=== PATIENT | male | born 1975 | race Caucasian/White ===

== ENCOUNTER 2019-07-21 11:17 | Emergency (ER) | payer BC, SELFPAY ==
--- NOTE | ~2019-07-21 | XR_ITS ---
EXAMINATION: XR shoulder RT min 2V DATE: 07/21/2019 13:31 INDICATION: Biceps tendon trauma. TECHNIQUE: 4 views of right shoulder were obtained. COMPARISON: None. FINDINGS: Bone alignment is normal. No fracture. There is mild osteoarthritis of glenohumeral joint a nd moderate osteoarthritis of acromioclavicular joint. IMPRESSION: 1. Polyarticular osteoarthritis. Reviewed, dictated and finalized at location A. CAL SCHEDULER
--- NOTE | ~2019-07-21 | XR_ITS ---
EXAMINATION: XR elbow RT 2V DATE: 07/21/2019 13:30 INDICATION: Biceps tendon pain. TECHNIQUE: 2 views of right elbow were obtained. COMPARISON: None. FINDINGS: Bone alignment is normal. No fracture. Joint spaces are well maintained. There are enthesop hytes at the medial humeral epicondyle and olecranon. There is no elbow joint effusion. IMPRESSION: 1. No fracture. Reviewed, dictated and finalized at location A. SFORMER REPAIRER IMPRESSION: 1. No fracture.
[2019-07-21 11:35] VITALS: BP 145/89; PULSE 109; RESP 18; TEMP 36.9; O2SAT 100
--- NOTE | 2019-07-21 12:48 | ED.GENADULT ---
HPI - General Adult General Chief complaint: Extremity Injury, Upper <SUAD Tamayo Last Filed: 07/21/19 14:37> Stated complaint: I think I tore my Bicep <SUAD Tamayo Last Filed: 07/21/19 14:37> Time Seen by Provider: 07/21/19 12:48 <SUAD Tamayo Last Filed: 07/21/19 14:37> Source: patient <SUAD Tamayo Last Filed: 07/21/19 14:37> Mode of arrival: ambulatory <SUAD Tamayo Last Filed: 07/21/19 14:37> Limitations: no limitations <SUAD Tamayo Last Filed: 07/21/19 14:37> History of Present Illness HPI narrative: Patient was lifting a stove this morning while doing some remodeling and felt a pop in his right bicep. There is a slight gap, no hematoma. He is unable to fully rotate at the elbow due to pain. <Daphne Cotas PA-C - Last Filed: 07/21/19 14:37> Onset (ago): hour(s) <SUAD Tamayo Last Filed: 07/21/19 14:37> Location: right and upper extremity <Daphne Coats PA-C - Last Filed: 07/21/19 14:37> Radiation: non-radiation <SUAD Tamayo Last Filed: 07/21/19 14:37> Severity: moderate <SUAD Tamayo Last Filed: 07/21/19 14:37> Quality: aching <SUAD Tamayo Last Filed: 07/21/19 14:37> Pain Consistency: constant <SUAD Tamayo Last Filed: 07/21/19 14:37> Relieving factors: none <SUAD Tamayo Last Filed: 07/21/19 14:37> Exacerbating factors: movement <Daphne Coats PA-C - Last Filed: 07/21/19 14:37> Treatments prior to arrival: none <Daphne Coats PA-C - Last Filed: 07/21/19 14:37> Related Data Home medications: Home Medications Medication Instructions Recorded Confirmed diclofenac sodium PO 07/21/19 <Daphne Coats PA-C - Last Filed: 07/21/19 14:37> Allergies/adverse reactions: Allergies Allergy/AdvReac Type Severity Reaction Status Date / Time No Known Drug Allergies Allergy Verified 07/21/19 13:20 <Daphne Coats PA-C - Last Filed: 07/21/19 14:37> Review of Systems Review of Systems: All systems reviewed & are unremarkable except as noted in HPI and below <Daphne Coats PA-C - Last Filed: 07/21/19 14:37> [facility] Family History Family History: Family History Mother Family history of heart disease in male family member before age 55 Other Diabetes mellitus Family history of lymphoma <Daphne Coats PA-C - Last Filed: 07/21/19 14:37> Social History Social History: Social History (Updated 07/21/19 @ 13:21 by Daphne Coats PA-C) Smoking status: Current every day smoker Alcohol intake: current Substance use: never Living arrangements: with family Occupation/Education: occupation Gender identity (if verbalized by the patient): Male <Daphne Coats PA-C - Last Filed: 07/21/19 14:37> Exam Const: General: no acute distress <Daphne Coats PA-C - Last Filed: 07/21/19 14:37> HENMT: Head: normal to inspection <Daphne Coats PA-C - Last Filed: 07/21/19 14:37> Eyes: Pupils: Equal, round and reactive pupils present <Daphne Coats PA-C - Last Filed: 07/21/19 14:37> Resp: Effort & Inspection: normal respiratory effort <Daphne Coats PA-C - Last Filed: 07/21/19 14:37> Cardio: Rate: regular rate <Daphne Coats PA-C - Last Filed: 07/21/19 14:37> Rhythm: regular rhythm <Daphne Coats PA-C - Last Filed: 07/21/19 14:37> Peripheral pulses: radial pulses present <Daphne Coats PA-C - Last Filed: 07/21/19 14:37> Skin: General skin exam: normal color <SUAD Tamayo Last Filed: 07/21/19 14:37> Extrem: Right upper extremity: normal to inspection, normal capillary refill, no joint enlargement and shoulder/upper arm (no significant swelling of bicep. ) tenderness over the biceps tendon (distally) and normal ROM (pain with rotation
[2019-07-21] MEDS: IBUPROFEN 400 MG TABLET 800 MG PO (13:51)
[2019-07-21 14:50] VITALS: PULSE 80; RESP 16; O2SAT 98
== END 2019-07-21 14:55 | disposition home or self-care (01) ==
PROVIDERS: Emergency Provider Emergency Medicine
DX: S46.211A Strain of muscle, fascia and tendon of other parts of biceps, right arm, initial encounter (principal); F17.200 Nicotine dependence, unspecified, uncomplicated; X50.0XXA Overexertion from strenuous movement or load, initial encounter
CPT/HCPCS: 73030; 73070; 99284; A4565; A9270

== ENCOUNTER 2020-03-12 03:15 | Inpatient (IN) | payer BC, SELFPAY ==
[2020-03-12] VITALS (14 sets, daily range): BP systolic 124–157; BP diastolic 84–108; PULSE 69–99; RESP 14–18; TEMP 36.6; O2SAT 94–100; BMI 27.4
--- NOTE | ~2020-03-12 | XR_ITS ---
EXAMINATION: XR chest 2V DATE: 03/12/2020 03:49 INDICATION: Chest pain. TECHNIQUE: Frontal and lateral views of the chest were obtained. COMPARISON: None. FINDINGS: The chest demonstrates clear lungs without pneumonia, pleural effusion, or pneumothorax. Th e heart size is normal. IMPRESSION: 1. No acute cardiopulmonary disease. Reviewed, dictated and finalized at location A.
--- NOTE | 2020-03-12 03:23 | ECG_ITS ---
Measurements Intervals [place] Rate: 87 P: 64 DC: 146 QRS: -3 QRSD: 97 T: -7 QT: 364 QTc: 440 Interpretive Statements SINUS RHYTHM BORDERLINE T WAVE ABNORMALITY- INFERIOR LEADS BASELINE ARTIFACT- V1-V2 BORDERLINE ECG Electronically Signed On 03-12-2020 6:44:54 CDT by Ezequiel Gray D.O.
--- NOTE | 2020-03-12 03:25 | ED.CHESTPAIN ---
HPI - Chest Pain General Chief Complaint: Chest Pain Stated Complaint: chest pain Time Seen by Provider: 03/12/20 03:25 History of Present Illness HPI narrative: Pt c/o chest pain, midsternal, tightness, moderated, non radiating,started this mornng. Related Data Home Medications Medication Instructions Recorded Confirmed pravastatin 40 mg PO HS 03/12/20 03/12/20 Allergies Allergy/AdvReac Type Severity Reaction Status Date / Time No Known Drug Allergies Allergy Unknown Verified 03/12/20 04:10 Review of Systems Review of Systems: All systems reviewed & are unremarkable except as noted in HPI and below Constitutional: Constitutional: Denies body ache(s), Denies chills, Denies excessive sweating, Denies fatigue, Denies fever(s), Denies headache(s), Denies lethargy, Denies malaise, Denies weakness and Denies weight loss Eyes: Eyes: Denies blurry vision, Denies change in vision and Denies loss of vision ENT: Denies dizziness, Denies ear discharge, Denies headache(s), Denies lip swelling, Denies epistaxis, Denies nasal congestion, Denies neck pain, Denies throat swelling and Denies tongue swelling Cardiovascular: Cardiovascular: Denies diaphoresis, Denies rapid heart rate, Denies edema, Denies irregular heart rhythm, Denies lightheadedness, Denies palpitations, Denies dyspnea and Denies dyspnea on exertion Respiratory: Respiratory: Denies chest congestion, Denies cough, Denies hemoptysis, Denies dyspnea and Denies dyspnea on exertion Gastrointestinal: Gastrointestinal: Denies abdominal pain, Denies melena, Denies hematochezia, Denies diarrhea, Denies nausea, Denies vomiting and Denies hematemesis Musculoskeletal: Musculoskeletal: Denies abnormal gait, Denies deformity, Denies joint swelling, Denies limited range of motion, Denies neck pain and Denies numbness Neurologic: Denies Abnormal speech present, Denies abnormal gait, Denies confusion, Denies dizziness, Denies headache(s), Denies focal weakness, Denies loss of vision, Denies numbness, Denies Other visual disturbances, Denies Sensory deficit (Neuro) and Denies weakness Psychiatric: Psychiatric: Denies confusion, Denies depression, Denies auditory hallucinations, Denies homicidal ideation and Denies suicidal ideation Endocrine: Endocrine: Denies cold intolerance, Denies excessive sweating, Denies fatigue, Denies heat intolerance and Denies palpitations Hematologic/Lymphatic: Hematologic/Lymphatic: Denies easy bleeding and Denies easy bruising Allergic/Immunologic: Allergic/Immunologic: Denies lip swelling, Denies throat swelling and Denies tongue swelling COUNT INCLUDES THE [facility] Social History Social History (Updated 07/21/19 @ 13:21 by Daphne Coats PA-C) Smoking status: Current every day smoker Alcohol intake: current Substance use: never Gender identity (if verbalized by the patient): Male Exam Const: General: cooperative, healthy appearing, comfortable, no acute distress, well developed, alert and awake; No confusion Orientation/consciousness: oriented to person, oriented to place, oriented to time, patient oriented x3 and No confusion Limitations: no limitations HENMT: Head: normal to inspection, normocephalic and atraumatic Ears: hearing grossly normal bilaterally, TM normal on the right and TM normal on the left General nose exam: Normal external nose present, Normal nares present and No nasal discharge present Face and sinus: normal facial exam Mouth: Yes Normal oral and palatal mucosa present, Yes lip normal, Yes tongue normal and Yes oropharynx normal Throat: posterior oropharynx normal, tonsils normal and uvula midline Eyes: General: appearance normal, both eyes and all related structures Pupils: Equal, round and reactive pupils present EOM: EOMs intact bilaterally Neck: Neck: normal visual inspection, full ROM, no lymphadenopathy and no meningeal signs Chest: Chest palpation & inspection: normal inspection of the chest Resp: Effort & Inspection: normal
[2020-03-12 03:35] LABS: Basophils Absolute Auto 0.1 K/mm3 (0.0-0.1); Basophils Percent Auto 1.3 % (0.2-1.2); Eosinophils Absolute Auto 0.8 K/mm3 (0-0.3); Eosinophils Percent Auto 8.4 % (0-4.4); Hematocrit 48.8 % (42.0-52.0); Hemoglobin 16.9 g/dL (14.0-18.0); Immature Granulocyte Absolute 0.02 K/mm3 (0.00-0.031); Immature Granulocyte Percent A 0.2 % (0-0.5); Lymphocytes Absolute Auto 4.75 K/mm3 (0.9-3.2); Lymphocytes Percent Auto 48.3 % (18.3-44.2); Mean Corpuscular HGB Conc 34.6 g/dl (32-36); Mean Corpuscular Hemoglobin 30.9 pg (26-34); Mean Corpuscular Volume 89.2 fl (80-100); Mean Platelet Volume 10.2 fl (7.4-10.4); Monocytes Absolute Auto 0.9 K/mm3 (0.1-0.6); Monocytes Percent Auto 8.6 % (2.6-8.5); Neutrophils Absolute Auto 3.3 K/mm3 (1.3-6.7); Neutrophils Percent Auto 33.2 % (45.5-73.1); Platelet Count Result 319 k/mm3 (150-375); Red Blood Count 5.47 M/mm3 (4.6-6.20); Red Cell Distribution Width 12.9 % (11.5-14.5); White Blood Count 9.8 K/mm3 (4.5-10.0)
[2020-03-12] MEDS: ASPIRIN 81 MG CHEWABLE TABLET 324 MG PO (03:38)
[2020-03-12 03:55] LABS: Alanine Aminotransferase 29 U/L (4-50); Albumin Level 4.6 g/dL (3.5-5.1); Alkaline Phosphatase 107 U/L (38-126); Anion Gap 8 mmol/L (8-16); Aspartate Amino Transferase 35 U/L (17-59); Bilirubin,Total 0.6 mg/dL (0.2-1.3); Blood Urea Nitrogen 18 mg/dL (9-20); Calcium 9.5 mg/dL (8.4-10.2); Carbon Dioxide 24 mmol/L (22-30); Chloride 105 mmol/L (98-107); Estimated CRCL calculation 0 ml/min; Estimated Glomerular Filt Rate > 60; Glucose 106 mg/dL (75-110); Sodium 137 mmol/L (137-145)
[2020-03-12 04:05] LABS: Troponin I < 0.012 ng/mL (0.000-0.034)
--- NOTE | 2020-03-12 06:25 | ECG_ITS ---
Measurements Intervals [place] Rate: 73 P: 60 DC: 158 QRS: -6 QRSD: 95 T: 9 QT: 378 QTc: 417 Interpretive Statements SINUS RHYTHM INCOMPLETE RIGHT BUNDLE BRANCH BLOCK BORDERLINE ECG Electronically Signed On 03-12-2020 6:45:21 CDT by Ezequiel Gray D.O.
[2020-03-12 06:55] LABS: Cholesterol 230 mg/dL (0-200); LDL Cholesterol Direct 109 mg/dL; Triglycerides 644 mg/dL (<150)
[2020-03-12 06:56] LABS: Troponin I 0.272 ng/mL (0.000-0.034)
[2020-03-12] MEDS: ASPIRIN 81 MG CHEWABLE TABLET PO (07:07)
--- NOTE | 2020-03-12 07:08 | PC.NURSE ---
0700-positive troponin reported to MD. Orders received and carried out. Pt reports no pain at this time. Will continue to monitor.
--- NOTE | 2020-03-12 08:38 | ECHO_ITS ---
Patient Info Name: Shawn Dunne Age: 45 years : 1975 Gender: Male Ht: 67 in Wt: 175 lbs BSA: 1.95 m2 HR: 80 bpm BP: 153 / 93 mmHg Heart Rhythm: Sinus Rhythm Technical Quality: Good Exam Date: 03/12/2020 9:04 AM Exam Location: [facility] Patient Status: Inpatient Admit Date: 03/12/2020 Staff Ordering Physician: Ayah Us MD (mitchell/ekaterina) Insurance Investigator: Keith Hunt RDCS Attending Provider: Dg Wallace MD Exam Type: CA echo doppler color flow Study Info Indications R07.9 - Chest pain, unspecified Complete two-dimensional, color flow and Doppler transthoracic echocardiogram is performed. Strain analysis performed. History/Risk Factors Chest pain; NSTEMI. Summary 1. Complete two-dimensional, color flow and Doppler transthoracic echocardiogram is performed. 2. Left ventricular chamber dimension is normal. 3. Left ventricular systolic function is normal, estimated at 60-65%. 4. Left atrial chamber dimension is normal. 5. Right atrial chamber dimension is normal. 6. The aortic valve is trileaflet. 7. There is no aortic valve stenosis. 8. The mitral valve has normal leaflets. 9. There is no mitral valve regurgitation. 10. The tricuspid valve leaflets are normal. 11. There is no tricuspid valve regurgitation. 12. There is no pericardial effusion. Left Ventricle Left ventricular chamber dimension is normal. Left ventricular systolic function is normal, estimated at 60-65%. There is no increased left ventricular wall thickness. Left ventricular septal wall motion is normal. The left ventricular diastolic function is normal. Right Ventricle Right ventricular chamber dimension is normal. Right ventricular systolic function is normal. Left Atria Left atrial chamber dimension is normal. Right Atria Right atrial chamber dimension is normal. Aortic Valve The aortic valve is trileaflet. There is no aortic valve sclerosis. There is no aortic valve stenosis. There is no aortic valve regurgitation. Pulmonic Valve The pulmonic valve is normal. There is no pulmonic valve stenosis. There is no pulmonic regurgitation. Mitral Valve The mitral valve has normal leaflets. There is no mitral valve stenosis. There is no mitral valve regurgitation. Tricuspid Valve The tricuspid valve leaflets are normal. There is no tricuspid valve regurgitation. Unable to assess RVSP due to poor TR signal. . Pericardium/Pleural The pericardium appears normal. There is no pericardial effusion. Inferior Vena Cava Normal inferior vena cava with >50% collapse upon inspiration. Aorta The aortic root size at the sinus of Valsalva is normal. The prox ascending aorta size is normal. Left Ventricular Outflow Tract Name Value Normal LVOT 2D LVOT Diameter 1.9 cm LVOT Doppler LVOT Peak Gradient 5 mmHg LVOT Mean Gradient 2 mmHg LVOT VTI 21 cm LVOT VTI/AV VTI Ratio 0.7 LVOT Stroke Volume 56 ml
--- NOTE | 2020-03-12 08:39 | PM.CNCAR ---
Assessment and Plan Assessment and plan (1) NSTEMI (non-ST elevated myocardial infarction): Code(s): I21.4 - Non-ST elevation (NSTEMI) myocardial infarction Status: Acute Assessment and Plan: 45 y/o with now prior cardiac history however multiple cardiovascular risk factors including HTN, HLD, active tobacco abuse, strong family history of early onset CAD who presents with atypical chest pain and elevated troponin at 0.2 He is pain free now. EKG with ischemic changes in inferior leads. Check 2D echo Will follow 3rd troponin and if continue to rise or if echo showed regional wall motion changes will start IV heparin and make arrangements for [facility] this afternoon or sooner if he develops chest pain or has any changes Continue ASA and statin (2) HTN (hypertension): Code(s): I10 - Essential (primary) hypertension Status: Acute Assessment and Plan: Will monitor closely. May need to start antihypertensives (3) HLD (hyperlipidemia): Code(s): E78.5 - Hyperlipidemia, unspecified Status: Acute Assessment and Plan: TG elevated. Continue Pravastatin. Consider switch to high intensive statin (4) Tobacco abuse: Code(s): Z72.0 - Tobacco use Status: Acute Assessment and Plan: Smoking cessation encouraged. Also drinks alcohol on daily basis. No signs of withdrawal History of Present Illness History of Present Illness Consult date/time: 03/12/20 08:39 45 y/o with h/o tobacco abuse who presented with chest pain He has no medical follow up for years and recently decided to see new PCP who started him on statin last week. He also instructed him to monitor BP at home with possible need to start antihypertensives. He reports on and off chest discomfort for the last 6 months. This morning around 1:30 am he woke up with pain and tightness in both upper arms that radiates to the back with some chest discomfort. He waited for sometime but pain did not resolved. He checked his BP at home and it was 185/100 so he decided to seek medical attention. Pain resolved by the time he got to ER and he feels back to normal now EKG shows sinus bradycardia with ST depression in inferior leads. First trop negative. Second trop 0.2. He remains pain free at time of my evaluation He smokes pack a day. he also drink 2-3 beers a day and occasionally wine. His mother had heart attack and stents in her early 50s. Reason For Visit: CHEST PAIN Review of Systems Review of Systems: All systems reviewed & are unremarkable except as noted in HPI and below Constitutional: Constitutional: Denies fatigue and Denies headache(s) Eyes: Eyes: Denies blurry vision ENT: Reports Normal hearing present and Denies headache(s) Cardiovascular: Cardiovascular: Denies chest pain, Denies diaphoresis, Denies pedal edema, Denies leg edema, Denies lightheadedness, Denies palpitations and Denies dyspnea Respiratory: Respiratory: Denies cough and Denies dyspnea Gastrointestinal: Gastrointestinal: Denies abdominal pain Musculoskeletal: Musculoskeletal: Denies back pain Neurologic: Reports Normal hearing present and Denies headache(s) Psychiatric: Psychiatric: Denies anxiety Endocrine: Endocrine: Denies fatigue and Denies palpitations [facility] Family History Family History (Updated 03/12/20 @ 05:41 by Adriana Schmidt RN) Mother Family history of heart disease in male family member before age 55 Hypertension Myocardial infarct Sibling Hypertension Obese Father Lung cancer COPD (chronic obstructive pulmonary disease) Non-tuberculous mycobacterial pneumonia Other Diabetes mellitus Family history of lymphoma Social History Social History (Updated 07/21/19 @ 13:21 by Daphne Coats PA-C) Smoking packs per day: 1 Smoking cigarettes per day: 20.0 Smoking status: Current every day smoker Tobacco type: cigarettes Second hand tobacco smoke exposure: Yes Alcohol intake:
--- NOTE | 2020-03-12 09:25 | ECG_ITS ---
Measurements Intervals [place] Rate: 75 P: 55 [place]: 155 QRS: -3 QRSD: 96 T: 23 QT: 376 QTc: 420 Interpretive Statements SINUS RHYTHM INCOMPLETE RIGHT BUNDLE BRANCH BLOCK BASELINE ARTIFACT- II, III BORDERLINE ECG Electronically Signed On 03-12-2020 10:10:47 CDT by Ezequiel Gray D.O.
[2020-03-12 10:00] LABS: Troponin I 0.444 ng/mL (0.000-0.034)
--- NOTE | 2020-03-12 10:25 | PC.NURSE ---
1010-Third troponin has come back higher. MD informed and orders received. Pt is pain free at present. Will continue to monitor.
--- NOTE | 2020-03-12 13:11 | WPDMODSED ---
Moderate Sedation Note-Pt Data Patient Data Allergies Allergy/AdvReac Type Severity Reaction Status Date / Time No Known Drug Allergies Allergy Unknown Verified 03/12/20 04:10 Home Medications Medication Instructions Recorded Confirmed Type pravastatin 40 mg PO HS 03/12/20 03/12/20 History Current Medications: Active Medications Acetaminophen (Tylenol Tablet) 650 mg PO Q4H PRN PRN Reason: Mild Pain (1-3) Al Hydrox/Mg Hydrox/Simethicone (Mylanta) 30 ml PO Q6H PRN PRN Reason: Indigestion Aspirin (Aspirin Chewable) 81 mg PO DAILY@0800 [facility] Last Admin: 03/12/20 07:07 Dose: 81 mg Documented by: Nitroglycerin (Nitrostat Subl 0.4 Mg (1/150)) 0.4 mg SUBLINGUAL Q5MIN PRN PRN Reason: Chest Pain Ondansetron HCl (Zofran Inj) 4 mg IV PUSH Q6H PRN PRN Reason: Nausea And Vomiting Sedation/Anesthesia: No previous sedation/anesthesia problems (including family history). [facility] Family History Family History (Updated 03/12/20 @ 05:41 by Adriana Schmidt RN) Mother Family history of heart disease in male family member before age 55 Hypertension Myocardial infarct Sibling Hypertension Obese Father Lung cancer COPD (chronic obstructive pulmonary disease) Non-tuberculous mycobacterial pneumonia Other Diabetes mellitus Family history of lymphoma Social History Social History (Updated 07/21/19 @ 13:21 by Daphne Coats PA-C) Smoking packs per day: 1 Smoking cigarettes per day: 20.0 Smoking status: Current every day smoker Tobacco type: cigarettes Second hand tobacco smoke exposure: Yes Alcohol intake: current Drinks per week: 18 Alcohol use details: drinks about 18 beers per week Substance use: never Substance use type: does not use Living arrangements: with family Gender identity (if verbalized by the patient): Male Spiritual care concerns: No Mod Sed Physical Exam Physical Exam Pre Procedural Exam: Normal: Appearance, Eyes, Ears, Nose, Neck, Throat, Airway, Lungs, Heart Size, Heart Rate, Heart Rhythm, Neuro Exam, Abdomen, Liver, Kidneys, Spleen, Breasts, Genitalia, Extremities and Skin Hours since solid foods: 8 Hours since liquid intake: 8 Internal Medicine - PN: Obj Da Vital Signs Vital Signs: Vital Signs - 24 hr 03/12/20 03:21 03/12/20 03:44 03/12/20 04:20 Temperature 36.6 C Pulse Rate 99 78 82 Respiratory Rate 18 18 14 Blood Pressure 157/108 H 156/100 H 124/94 H Pulse Oximetry 100 98 99 03/12/20 05:38 03/12/20 08:00 Temperature 36.6 C Pulse Rate 70 73 Respiratory Rate 16 14 Blood Pressure 145/94 H 153/93 H Pulse Oximetry 98 100 Intake/Output Intake/Output: Intake & Output 03/09/20 03/10/20 03/11/20 03/12/20 23:59 23:59 23:59 23:59 Intake Total 0 Balance 0 Meds/Results Medications: Active Medications Generic Name Dose Route Start Last Admin Trade Name Freq PRN Reason Stop Dose Admin Acetaminophen 650 mg 03/12/20 05:01 Tylenol Tablet PO Q4H PRN Mild Pain (1-3) Al Hydrox/Mg Hydrox/Simethicone 30 ml 03/12/20 05:01 Mylanta PO Q6H PRN Indigestion Aspirin 81 mg 03/12/20 08:00 03/12/20 07:07 Aspirin Chewable PO 81 mg DAILY@0800 LOUIE Administration Nitroglycerin 0.4 mg 03/12/20 05:01 Nitrostat Subl 0.4 Mg (1/150) SUBLINGUAL Q5MIN PRN Chest Pain Ondansetron HCl 4 mg 03/12/20 05:01 Zofran Inj IV PUSH Q6H PRN Nausea And Vomiting Radiology Results: ITS Impressions Chest X-Ray 03/12/20 06:40 IMPRESSION: 1. No acute cardiopulmonary disease. Labs CBC & Chem 7: 03/12/20 03:30 03/12/20 03:30 Labs: Laboratory Results - last 24 hr 03/12/20 03/12/20 03/12/20 03:30 03:30 06:17 WBC 9.8 RBC 5.47 Hgb 16.9 Hct 48.8 MCV 89.2 MCH 30.9 MCHC 34.6 RDW 12.9 Plt Count 319 MPV 10.2 Immature Gran % (Auto) 0.2 Neut % (Auto) 33.2 L Lymph % (Auto) 48.3 H Chambers %
--- NOTE | 2020-03-12 13:51 | P.PCNCC_ITS ---
Cardiac Cath Procedure Note Date of procedure:: 03/12/20 Performing physician:: Dg Wallace MD Procedure: 1. Left heart catheterization, selective coronary angiogram. 2. Left ventricular angiogram. 3. Angio-Seal device for arterial hemostasis 4. aortic root angiogram 5. Conscious sedation, using 2 mg of Versed and 25 micro fentanyl, starting time is 13:21 ending time is 1:48 p.m. Hand Clipper: Dr. Dg Wallace Complications: None. Sedation: Conscious sedation, local anesthesia, using 2 mg of Versed said, 25 mcg of fentanyl, and using 1% lidocaine for local anesthesia. Technique: After informed consent was obtained from patient, was brought to the prosthetics lab technician, put in the prosthetics lab technician table, prepped and draped in usual sterile fashion. Five [place] sheath was inserted into the right common femoral artery, through the sheath 5 [place] JL4 catheter inserted, advanced to the left coronary artery, left coronary artery could not be visualized on the left cusp, JL 3.5 catheter was used and still not able to visualize the left coronary artery, catheter was exchanged over guidewire to 5 [place] WRP, was advanced to the right coronary artery right coronary artery angiogram was obtained. 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 The catheter was exchanged over guidewire into 5 [place] pigtail catheter advanced left ventricular ventricular angiogram was obtained. Catheter then was exchanged over guidewire into 5 [place] multipurpose catheter, advanced to the right coronary artery and right coronary artery angiogram was done to visualize the anomalous left main. Catheter then was pulled the sheath was pulled applying Angio-Seal device for arterial hemostasis, patient tolerated showed no complication taken to the prosthetics lab technician his room in stable condition stable vital signs Hemodynamics: aortic pressure 161/102 . LV pressure 162/ 18with LVEDP of 24 mmHg Angiographic findings: Left main: is anomalous seems to be coming off the right cusp with long vessel likely is going around the aorta and going to the anterior wall of the become an LAD, seems to have proximal narrowing about 40-50% diffuse disease, likely is a compression of the vessel Lad medium size artery showed seems to be an extension of the left main that is anomalous, going to the apex with no significant other lesions Left circumflex artery, smaller vessel coming also from the right cusp with going behind the aorta no significant disease or stenosis RCA: Dominant vessel, large caliber vessel, showed no significant disease or stenosis LV: Normal size left ventricle with normal left ventricular systolic function. 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 he may need to have coronary bypass surgery to reimplant the left main into the left cusp to avoid compression
--- NOTE | 2020-03-12 14:00 | SUR.PHASEII ---
RETURNS TO [facility] 7 S/P [facility] W/ DR. ARRINGTON. AWAKE AND ALERT ON ARRIVAL. DENIES CP OR SOB. ANGIOSEAL TO R. GROIN PUNCTURE SITE, SITE COVERED W/ C/D/I GUAZE AND TEGADERM DRESSING. AREA WITHOUT BLEEDING OR HEMATOMA. SITE SOFT, NONTENDER. R. PEDAL PULSE STRONG. BEDREST X 2 HOURS. WILL MONITOR.
--- NOTE | 2020-03-12 14:28 | SUR.PHASEII ---
DR. ARRINGTON TO BEDSIDE TO SPEAK TO PT. RE: FINDINGS OF PROCEDURE.
--- NOTE | 2020-03-12 15:00 | SUR.PHASEII ---
END PHASE II RECOVERY. STILL HAS 1 HOUR BEDREST BEFORE GETTING UP TO CHAIR AT [facility]. NO NEW CHANGES NOTED. R. GROIN SITE WITHOUT CHANGE. WILL CONTINUE TO MONITOR. SEE PCS FOR FURTHER CHARTING.
--- NOTE | 2020-03-12 15:01 | PC.NURSE ---
RETURN TO [facility] CHARTING POST PHASE II RECOVERY. REMAINS ON BEDREST S/P [facility] W/ DR. ARRINGTON UNTIL 1600, THEN UP TO CHAIR. WILL CONTINUE TO MONITOR. R. GROIN SITE WITHOUT CHANGE.
--- NOTE | 2020-03-12 17:29 | SUR.PHASEII ---
1715-pt given D/C orders and instructions. Questions answered and verbalized understanding. 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 Pt and understand this. AOx4. PIV removed intact. Groin soft and non-tender, no evidence of bleeding or hematoma noted. Strong right pedal pulse noted. Taken via wheelchair to waiting vehicle. No distress noted at verbalized at time of departure.
--- NOTE | 2020-04-07 15:59 | PM.DS ---
DS: Admitting Diagnosis Admitting Diagnosis Admitting Diagnosis: CHEST PAIN DS: Summary Time Spent with Patient Time attestation: Total time spent providing and/or coordinating discharge services: 45 y/o with no prior cardiac history however multiple cardiovascular risk factors including HTN, HLD, active tobacco abuse, strong family history of early onset CAD who presents with chest pain and elevated troponin at 0.2. EKG with ST changes in inferior leads. 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 His chest pain resolved. He was discharged in stable condition with plan to have cardiac CT angiogram to better assess anomalous coronary course with potential subsequent surgery referral if anomalous artery has high risk features. Exam Const: General: no acute distress Eyes: Sclera: sclerae normal Neck: Neck: no JVD Carotids: no bruits Resp: Effort & Inspection: normal respiratory effort Auscultation: clear to auscultation bilaterally Cardio: Rate: regular rate and not tachycardic Rhythm: regular rhythm Heart sounds: no gallops, no murmurs and no rubs GI: GI Palp: Yes Soft to palpation and No Tenderness to palpation present (GI) Skin: General skin exam: normal color Neuro: Cranial nerves: Yes Normal hearing present Speech: normal speech Extrem: General: normal to inspection and no edema Psych: Affect: normal affect Discharge Plan Discharge Attending physician on discharge: Dg Wallace Consulting providers: Ayah Us ; Ezequiel Gray ; Alejandro Yang V. Discharging Clinician: Dg Wallace Patient Disposition: Home, Self-Care Activity: no straining Diet: heart healthy Wound Care Instructions: other - see discharge instructions Patient Instructions: Antibiotic Form, Angina (ED), Chest Pain (GEN), How to Stop Smoking (DC) Stand Alone Forms: General Discharge Information Follow-up/Referrals: Dg Wallace MD [Physician] - 1 Week Discharge Medications: New metoprolol tartrate 25 mg Tablet 25 mg PO DAILY 30 Days Qty: 30 RF: 0 fenofibrate nanocrystallized [Tricor] 145 mg Tablet 145 mg PO DAILY Qty: 30 RF: 0 Continued pravastatin 40 mg Tablet 40 mg PO DAILY RF: 0 Date of admission: 03/12/20 12:04 Primary Care Provider: Erick,Juan C Beckham Admitting Provider: Dg Wallace Attending physician on admission: Dg Wallace Condition: Improved Quality VTE Prophylaxis VTE prophylaxis: pharmacologic ordered (Currently on Lovenox 1 milligram/kilogram for AFib/RVR.)
== END 2020-03-12 17:20 | disposition home or self-care (01) | DRG 281 ==
LOC: ANHED 04:27 → ANHCPC 05:12
PROVIDERS: Admitting Provider Specialist; Emergency Provider Emergency Medicine; Visit Provider Specialist
PROC: 4A023N7 Measurement of Cardiac Sampling and Pressure, Left Heart, Percutaneous Approach (ICD-10-PCS; CPT 93452; principal; 2020-03-12 14:00)
PROC: 4A023N7 Measurement of Cardiac Sampling and Pressure, Left Heart, Percutaneous Approach (ICD-10-PCS; 2020-03-12 14:00)
DX: I21.4 Non-ST elevation (NSTEMI) myocardial infarction (principal); Q24.5 Malformation of coronary vessels; I10 Essential (primary) hypertension; E78.5 Hyperlipidemia, unspecified; F17.210 Nicotine dependence, cigarettes, uncomplicated; Z82.49 Family history of ischemic heart disease and other diseases of the circulatory system
CPT/HCPCS: 36415; 71046; 80053; 80061; 84484; 85025; 93005; 93306; 93458; 99285; A9270; C1760; C1887; C1894; G0269; G0378; J1644; J2250; J3010; J7040

== ENCOUNTER 2025-02-16 12:31 | Emergency (ER) | payer BC, SELFPAY ==
--- OUTSIDE RECORDS SUMMARY | 2023-09-19 13:15 | XMS_ITS | Continuity of Care Document ---
Author Name [facility] Organization [facility] Care Team Providers Care Chair Lift Operator Name Role Phone [facility] Unavailable Unavailable Problems Combined list of problems from Department of [facility] and [facility] facilities. It does not include entries that were removed or entered in error. Problem Status Onset Date Problem Type Date of Resolution Comments Source Hiatal hernia with gastroesophageal reflux disease (SNOMED CT 605994124) Active Condition [facility] Hyperlipidemia (SNOMED CT 47489402) Active Condition [facility] Nonspecific esophageal motility disorder Active Condition [facility] Tobacco Use Disorder * (ICD-9-CM 305.1) Active Condition [facility] Immunizations Combined list of available immunizations from the Department [facility] and [facility] facilities. Immunization Series Date Given Administered By Site Reaction Lot Number CVX Code Drug Death Claim Examiner Status Comments Source COVID-19 (MODERNA), MRNA, LNP-S, PF, 100 MCG/0.5 ML DOSE 2 2020 207 complet ed MOD; [id number]; 1 [facility] COVID-19 (MODERNA), MRNA, LNP-S, PF, 100 MCG/0.5 ML DOSE 1 2020 207 complet ed MOD; [id number]; 1 [facility] TD(ADULT) UNSPECIFIED FORMULATION 2013 139 complet ed Left Deltoid [facility] INFLUENZA, UNSPECIFIED FORMULATION 2012 88 complet ed [facility] INFLUENZA, UNSPECIFIED FORMULATION 2011 88 complet ed [facility] Encounters Combined list of: 1) Encounters from [facility] facilities going backup to the last 18 months, not all [place] inpatient encounters are included; 2) Encounters from the Department of [facility] facilities going backup to 280 months. Location Location Details Encounter Type Encounter Number Reason For Visit Attending Provider ADM Date DC Date Status Disposition Source [facility] Outpatient Encounter [id number] 9 09/18 [facility] Social History Combined list of available smoking, tobacco, and other social history from Department of Defense and Veterans Affairs facilities. Social History Type Response Date Comment Sour e Tobacco smoking status NHIS QUIT TOBACCO >7 YEARS AGO 09/08/2017 [facility] History of tobacco use TOBACCO OFFERRED PT MEDS (PROVIDER) 01/17/2014 [facility] History of tobacco use LIFETIME NON-USER OF TOBACCO 07/18/2013 [facility] History of tobacco use TOBACCO OFFERRED PT MEDS (PROVIDER) 03/22/2012 [facility]
--- OUTSIDE RECORDS SUMMARY | 2023-09-19 13:15 | XMS_ITS | Continuity of Care Document ---
Author Name [facility] Organization [facility] Care Team Providers Care Solar Installer Technician Name Role Phone [facility] Unavailable Unavailable Problems Combined list of problems from Department of [facility] and [facility] facilities. It does not include entries that were removed or entered in error. Problem Status Onset Date Problem Type Date of Resolution Comments Source Hiatal hernia with gastroesophageal reflux disease (SNOMED CT 674863618) Active Condition [facility] Hyperlipidemia (SNOMED CT 90388785) Active Condition [facility] Nonspecific esophageal motility disorder Active Condition [facility] Tobacco Use Disorder * (ICD-9-CM 305.1) Active Condition [facility] Immunizations Combined list of available immunizations from the Department [facility] and [facility] facilities. Immunization Series Date Given Administered By Site Reaction Lot Number CVX Code Drug Director Meetings Status Comments Source COVID-19 (MODERNA), MRNA, LNP-S, PF, 100 MCG/0.5 ML DOSE 2 2020 207 complet ed MOD; [id number]; 1 [facility] COVID-19 (MODERNA), MRNA, LNP-S, PF, 100 MCG/0.5 ML DOSE 1 2020 207 complet ed MOD; [id number]; 1 [facility] TD(ADULT) UNSPECIFIED FORMULATION 2013 139 complet ed Left Deltoid [facility] INFLUENZA, UNSPECIFIED FORMULATION 2012 88 complet ed [facility] INFLUENZA, UNSPECIFIED FORMULATION 2011 88 complet ed [facility] Encounters Combined list of: 1) Encounters from Department of Veterans Affairs facilities going backup to the last 18 months, not all [place] inpatient encounters are included; 2) Encounters from the Department of [facility] facilities going backup to 280 months. Location Location Details Encounter Type Encounter Number Reason For Visit Attending Provider ADM Date DC Date Status Disposition Source [facility] Outpatient Encounter [id number] 9 09/18 [facility] Social History Combined list of available smoking, tobacco, and other social history from Department of Defense and Veterans Affairs facilities. Social History Type Response Date Comment Sour e Tobacco smoking status NHIS QUIT TOBACCO >7 YEARS AGO 09/08/2017 [facility] History of tobacco use TOBACCO OFFERRED PT MEDS (PROVIDER) 01/17/2014 [facility] History of tobacco use LIFETIME NON-USER OF TOBACCO 07/18/2013 [facility] History of tobacco use TOBACCO OFFERRED PT MEDS (PROVIDER) 03/22/2012 [facility]
--- OUTSIDE RECORDS SUMMARY | 2025-02-16 12:34 | XMS_ITS | Encounter Summary ---
Author Organization [facility] Address [address] [place] [address] Phone Care Team Providers Care Mottle Lay Up Operator Name Role Phone No, Physician Primary Care Provider [phone] Juan C Suarez MD Primary Care Provider No, Physician Primary Care Provider [phone] Unknown, Notinfile Primary Care Provider Unavail able Juan C Suarez MD Primary Care Provider Unknown, Notinfile Primary Care Provider Unavail able [facility], Primary Care Medicine Primary Care Pr ovider Unavailable Encounter Details Date Type Department Care Team (Latest Contact Info) Description 04/07/2020 Orders Only [facility] Scanning, Provider Social History Tobacco Use Types Packs/Day Years Used Date Smoking Tobacco: Every Day Cigarettes 0.1 16.7 Started: 2008 Smokeless Tobacco: Former Comments:off and on (will quit for 6-7 mos. but then starts again) Alcohol Use Standard Drinks/Week Comments Yes 14 (1 standard drink = 0.6 oz pu re alcohol) Sex and Gender Information Value Date Recorded Sex Assigned at Not on file Legal Sex Male 4:34 AM RECREATION PROGRAM COORDINATOR Gender Identity Not on file Sexual Orientation Not on file documented as of this encounter Plan of Treatment Not on file documented as of this encounter Procedures Procedure Name Priority Date/Time Associated Diagnosis Comments CARDIOLOGY DOCUMENT SCAN 04/07/2020 documented in this encounter Results * SCAN - CARDIOLOGY (04/07/2020) Anatomical Region Laterality Modality Other us Provider Scanning CV CARDIAC SERVICES PROCEDURES Final Result documented in this encounter Visit Diagnoses Not on filedocumented in this encounter Care Teams Mottle Lay Up Operator Relationship Specialty Start Date End Date No, Physician PCP - General 07/23/19 09/14/20 Juan C Suarez MD PCP - General Family Medicine 09/15/20 09/15/20 No, Physician PCP - General 09/16/20 09/18/20 Unknown, Notinfile PCP - General 09/19/20 10/01/20 Juan C Suarez MD PCP - General Family Medicine 10/02/20 04/28/21 Unknown, Notinfile PCP - General 04/29/21 08/03/21 Clinic, Primary Care MedicineMD PCP - General Family Medicine 08/04/21 documented as of this encounter
--- OUTSIDE RECORDS SUMMARY | 2025-02-16 12:34 | XMS_ITS | Encounter Summary ---
Author Organization [facility] Address [address] Correan: Epic Prelude ADT [facility] [address] Care Team Providers Care Repairer Name Role Phone Micaela Alvarez APN Primary Care Provider + Encounter Details Date Type Department Care Team (Latest Contact Info) Description 02/23/2006 Orders Only Bishop Baltazar DO [address] [address] Social History Tobacco Use Types Packs/Day Years Used Date Smoking Tobacco: Never Assessed Sex and Gender Information Value Date Recorded Sex Assigned at Not on file Legal Sex Male 2:58 AM HOSPITALITY INTERN Gender Identity Not on file Sexual Orientation Not on file documented as of this encounter Progress Notes * Bishop Baltazar DO - 04/02/2008 5:20 PM CDT NURSE NAME: Theodore Cotto H BLOOD PRESSURE: 140/90. Right Arm Sitting RESPIRATIONS: 12. TEMPERATURE: 98.4??f. Oral CHIEF COMPLAINT ankle pain/ quest/ NEW PT HISTORY: 1. Playing tennis Tuesday. Went for the ball, was running to his left, heard 4 cracks, fell to ground in immediate pain. [facility] was negative that day. Has used ice, immobilizer, and aleve. Given tramadol for pain, but not taking, stating does not help much. Using crutches to weight-bear still. Can still not place much weight on leg without pain. Pain greatestalong medial joint line, with some achiness around fibular head. Pain on medial side is sharp. Pain-free now without movement. Flexion is really tender, has trouble going past 90 degrees. Also cannot fully extend. Hx of injury 5 years ago to same knee. Hyperextension injury playing volleyball. No crutches at that time. 2. Hx of GERD since age 13. Takes nexium with relief for 4 years, symptoms controlled. EGD september 23, gastritis and hiatal hernia. Surgery was discussed, but felt not necessary. 3. Has been more than a year since his cholesterol was checked, and last time was a bit high. Has lost 15 lbs. Wants to get it rechecked. ROS: GENERAL: Normal activity and energy level, no change in appetite. No major weight gain or loss. No malaise, chills, fever, diaphoresis. CARDIAC: No chest pain, palpitations, orthopnea, dyspnea on exertion, or paroxysmal nocturnal dyspnea. RESPIRATORY: No dyspnea, cough, hemoptysis or wheezing. GI: See HISTORY OF PRESENT ILLNESS. PSYCHIATRIC: No increased nervousness, mood changes or depression. Coping well. PAST MEDICAL HISTORY: MEDICAL: No significant history of medical diseases. FAMILY HISTORY: MOTHER: CAD, HTN. OTHER RELATIVES: Uncle with lymphoma. MGF and uncle with DM. SOCIAL HISTORY: MARITAL HISTORY: , living with spouse. TOBACCO USE: Stopped several years ago. Chewed until 2000. 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 Served in [employer] and [employer]. ALCOHOL: The patient drinks alcohol 1 to 2 times per day. PHYSICAL EXAMINATION: CONSTITUTIONAL: GENERAL APPEARANCE: Healthy appearing patient in no distress. EYES: CONJUNCTIVAE/LIDS: Conjunctivae and lids appear normal. PUPILS: Pupils equal and normally reactive to light and accommodation. EARS, NOSE, MOUTH AND THROAT: EXTERNAL/EARS AND NOSE: Overall appearance normal with no scars, lesions or masses. EARS: Tympanic membranes shiny without retraction. Canals unremarkable. Hearing grossly normal. NOSE (AND SINUS): No abnormality of the nose or sinuses is noted. NECK/THYROID: Trachea midline. No thyroid enlargement, tenderness, or mass. No supraclavicular or cervical adenopathy. RESPIRATORY: Clear to auscultation and percussion. Normal respiratory effort. CARDIOVASCULAR: CARDIAC: Regular rhythm. No murmurs, rubs, or gallops. ARTERIAL: Aortic pulses of normal amplitude with no bruits. GASTROINTESTINAL: ABDOMEN: Soft, non-tender, without masses. Bowel sounds active. LIVER/SPLEEN/KIDNEY: No hepatosplenomegaly, tenderness or nodularity. Kidneys not palpable. MUSCULOSKELETAL EXAM: EXTREMITIES: LEFT LOWER EXTREMITY: KNEE DIFFUSELY SWOLLEN, POPLITEAL FOSSA SWOLLEN. noticeable significant swelling compared to right. + crepitus with extension. Unable to fully extend. Limited flexion past 90 degrees. ant/post drawer neg. Jan negative. verus and valgus testing normal. + clicks with testingof medial and lat collateral ligaments with Romeo's. pulses normal. No numbness/tingling. Strength intact. ASSESSMENT/PLAN: V7.0-ROUTINE GENERAL MEDICAL EXAMINATION ASSESSMENT: Healthy male age 31. Will test fasting lipids as he has been told they were hi in the past and has lost weight. LAB ORDERS: Order number: [id number] Test Ordered: LIPID PANEL 7600 530.81-GASTROESOPHAGEAL REFLUX (GERD) ASSESSMENT: Has had semi-recent EGD showing mild esophagitis. Has good relief with nexium, which was prescribed originally by his GI Dr. Would like a refill. MEDICATIONS: NEXIUM ORAL CAPSULE DELAYED RELEASE 20 MG, 1 tab PO QDay, 30 Dispensed, 11 Fills, status: NEW PRESCRIPTION, 02/23/2006. 719.46-PAIN JOINT KNEE ASSESSMENT: History/Exam is concerning for a medial meniscus tear. Plan: Non- weight bearing until MRI results. Motrin TID for pain swelling. Immobilizer when up and around. Ice when down. Elevation when down. MRI this week. Could need ortho referral if +. Possible PT if -. MEDICATIONS: IBUPROFEN ORAL TABLET 800 MG, 1 Every Eight Hours,x 4 days, then as needed., 30 Dispensed, 1 Fills,status: NEW PRESCRIPTION, 02/23/2006. LAB ORDERS: Order number: [id number] Test Ordered: MRI KNEE RETURN VISIT: Instructed to call if not improving. To call for MRI results and plan. 02/24/06 08:36 p Electronically signed by Bishop Baltazar DO. TEACHING PHYSICIAN COMMENTS: I have reviewed the resident's note and I agree with the resident's evaluation and plan.[email or web address] Electronically Signed by: Keith Tran MD on Saturday, March 11, 2006 documented in this encounter Plan of Treatment Not on file documented as of this encounter Visit Diagnoses Not on filedocumented in this encounter Care Teams Repairer Relationship Specialty Start Date End Date Micaela Alvarez APN PCP - General NURSE PRACTITIONER 01/01/21 documented as of this encounter
--- OUTSIDE RECORDS SUMMARY | 2025-02-16 12:34 | XMS_ITS | Encounter Summary ---
Author Organization [facility] Address [address] Attn: [place] [address] Care Team Providers Care Smart Energy Specialist Name Role Phone Micaela Alvarez APN Primary Care Provider + Encounter Details Date Type Department Care Team (Latest Contact Info) Description 12/08/2006 Orders Only Bishop Baltazar DO [address] [address] Social History Tobacco Use Types Packs/Day Years Used Date Smoking Tobacco: Never Assessed Sex and Gender Information Value Date Recorded Sex Assigned at Not on file Legal Sex Male 2:58 AM DIRECTOR OF BRAND MARKETING Gender Identity Not on file Sexual Orientation Not on file documented as of this encounter Progress Notes * Bishop Baltazar DO - 11/08/2007 4:47 PM CDT TIME:12:02 pm PATIENT`S HOME PHONE: PATIENT`S WORK PHONE: PATIENT`S INSURANCE: [facility] WHO TOOK THE CALL: Cyndy Andrea M GENERAL INFORMATION PATIENT STATUS: Established Patient. PCP: Giovanny. ALTERNATIVE PHONE NUMBER: [phone] WHO CALLED: Patient called. PHARMACY NUMBER: [phone] SECTION 1: REQUESTED ACTION [email or web address] 12/08/06 at 12:02 pm: MEDICATION REQUEST: mail script to pt Patient requests a refill. [place] DOCTOR`S RESPONSE: gianna 12/08/06 at 12:[address] in mail tomorrow. MEDICATIONS: Call in to Pharmacy NEXIUM ORAL CAPSULE DELAYED RELEASE 20 MG, 1 tab PO QDay, 30 Dispensed, 11 Fills, status: CONTINUED, 12/08/2006. documented in this encounter Plan of Treatment Not on file documented as of this encounter Visit Diagnoses Not on filedocumented in this encounter Care Teams Smart Energy Specialist Relationship Specialty Start Date End Date Micaela Alvarez APN PCP - General NURSE PRACTITIONER 01/01/21 documented as of this encounter
--- OUTSIDE RECORDS SUMMARY | 2025-02-16 12:34 | XMS_ITS | Encounter Summary ---
Author Organization [facility] Address [address] [place] [address] Care Team Providers Care Ribbon Blockmaker Name Role Phone Micaela Alvarez APN Primary Care Provider + Encounter Details Date Type Department Care Team (Late st Contact Info) Description 01/26/2007 Outpatient Historical [facility] Family Medicine Kalyn Eladio [address] [address] [place] [address] [place] [address] [address] [place] [address] Social History Tobacco Use Types Packs/Day Years Used Date Smoking Tobacco: Never Assessed Sex and Gender Information Value Date Recorded Sex Assigned at Not on file Legal Sex Male 2:58 AM SOFTWARE LICENSING ANALYST Gender Identity Not on file Sexual Orientation Not on file documented as of this encounter Plan of Treatment Not on file documented as of this encounter Visit Diagnoses Not on filedocumented in this encounter Care Teams Ribbon Blockmaker Relationship Specialty Start Date End Date Micaela Alvarez APN PCP - General NURSE PRACTITIONER 01/01/21 documented as of this encounter
--- OUTSIDE RECORDS SUMMARY | 2025-02-16 12:34 | XMS_ITS | Encounter Summary ---
Author Organization [facility] Address 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
--- OUTSIDE RECORDS SUMMARY | 2025-02-16 12:34 | XMS_ITS | Clinical Summary ---
Author Organization [facility] Address [address] [place] [address] Phone Care Team Providers Care Payroll Accountant Name Role Phone Micaela Alvarez APN Primary Care Provider + Medications IBUPROFEN 800 MG TAB 1 Every Eight Hours,x 4 days, then as needed. 30.00 1 02/23/2006 Active ROBAXIN-750 750 MG TAB one tablet QID 30.00 0 01/26/2007 Active NEXIUM 20 MG CAP 1 tab PO QDay 90.00 3 01/26/2007 Active Active Problems Problem Noted Date Diagnosed Date Lumbago 01/26/2007 Routine general medical exam ination at a health care facility 02/23/2006 Intestinal infection due to other organism, not elsewhere classified 02/23/2006 Esophageal reflux 02/23/2006 Pain in joint, lower leg 02/23/2006 Social History Tobacco Use Types Packs/Day Years Used Date Smoking Tobacco: Never Assessed Sex and Gender Information Value Date Recorded Sex Assigned at Not on file Legal Sex Male 2:58 AM LOCOMOTIVE ENGINEER Gender Identity Not on file Sexual Orientation Not on file Last Filed Vital Signs Vital Sign Reading Time Taken Comments Blood Pressure 140/90 02/23/2006 3:00 PM CDT Pulse - - Temperature 36.9 C (98.4 F) 02/23/2006 3:00 PM CDT Respiratory Rate 12 02/23/2006 3:00 PM CDT Oxygen Saturation - - Inhaled Oxygen Concentration - - Weight - - Height - - Body Mass Index - - Plan of Treatment Health Maintenance Due Date Last Done Comments DTAP/TDAP/TD VACCINES (1 - Tdap) 1993 HEPATITIS B VACCINES (1 of 3 - 19+ 3-dose series) 06/1992 COLORECTAL SCREENING 2019 Colorectal Cancer Screening 2019 FIT-DNA Q 3 years 2019 FIT/FOBT Q 1 year 2019 Flex Sig/CT Colonography Q 5 years 2019 ZOSTER VACCINE (1 of 2) 01/19/2024 INFLUENZA VACCINE (#1) 2025 Insurance Care Teams Payroll Accountant Relationship Specialty Start Date End Date Micaela Alvarez APN PCP - General NURSE PRACTITIONER 01/01/21
--- OUTSIDE RECORDS SUMMARY | 2025-02-16 12:34 | XMS_ITS | Encounter Summary ---
Author Organization [facility] Address [address] [place] [address] Care Team Providers Care Supplier Relationship Director Name Role Phone Micaela Alvarez APN Primary Care Provider + Encounter Details Date Type Department Care Team (Late st Contact Info) Description 02/23/2006 Outpatient Historical [facility] Family Medicine [facility] [address] [facility] [address] [place] [address] [place] [address] [place] [address] Social History Tobacco Use Types Packs/Day Years Used Date Smoking Tobacco: Never Assessed Sex and Gender Information Value Date Recorded Sex Assigned at Not on file Legal Sex Male 2:58 AM TELESALES MANAGER Gender Identity Not on file Sexual Orientation Not on file documented as of this encounter Last Filed Vital Signs Vital Sign Reading Time Taken Comments Blood Pressure 140/90 02/23/2006 3:00 PM CDT Pulse - - Temperature 36.9 C (98.4 F) 02/23/2006 3:00 PM CDT Respiratory Rate 12 02/23/2006 3:00 PM CDT Oxygen Saturation - - Inhaled Oxygen Concentration - - Weight - - Height - - Body Mass Index - - documented in this encounter Plan of Treatment Not on file documented as of this encounter Visit Diagnoses Not on filedocumented in this encounter Care Teams Supplier Relationship Director Relationship Specialty Start Date End Date Micaela Alvarez APN PCP - General NURSE PRACTITIONER 01/01/21 documented as of this encounter
--- OUTSIDE RECORDS SUMMARY | 2025-02-16 12:34 | XMS_ITS | Encounter Summary ---
Author Organization [facility] Address [address] [place] [address] Phone Care Team Providers Care Private Security Guard Name Role Phone Juan C Suarez MD Primary Care Provider Unknown, Notinfile Primary Care Provider Unavail able Clinic, Primary Care Medicine MD Primary Care Pr ovider Unavailable Encounter Details Date Type Department Care Team (Late st Contact Info) Description 12/04/2020 Telephone [facility] Cardiology [address] [facility] Advanced Medicine 8th [place] [address] [place] [address] Chelle Regalado MD [address] [place] [address] Social History Tobacco Use Types Packs/Day Years Used Date Smoking Tobacco: Former Cigarettes 0.1 16.7 S tarted: 2009 Smokeless Tobacco: Former Comments:off and on (will quit for 6-7 mos. 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
--- OUTSIDE RECORDS SUMMARY | 2025-02-16 12:34 | XMS_ITS | Encounter Summary ---
Author Organization [facility] Address [address] [place] [address] Care Team Providers Care Assistant Basketball Coach Name Role Phone Micaela Alvarez APN Primary Care Provider + Encounter Details Date Type Department Care Team (Late st Contact Info) Description 01/26/2007 Outpatient Historical [facility] Family Medicine Kalyn Eladio [address] [facility] [address] [place] [address] [place] [address] [facility] [address] [place] [address] Social History Tobacco Use Types Packs/Day Years Used Date Smoking Tobacco: Never Assessed Sex and Gender Information Value Date Recorded Sex Assigned at Not on file 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
--- OUTSIDE RECORDS SUMMARY | 2025-02-16 12:34 | XMS_ITS | Encounter Summary ---
Author Organization [facility] Address [address] [place] [address] Care Team Providers Care Programmer Numerical Control Name Role Phone Micaela Alvarez APN Primary Care Provider + Encounter Details Date Type Department Care Team (Late st Contact Info) Description 01/26/2007 Orders Only [facility] Family Medicine [facility] [address] [facility] [address] [place] [address] [place] [address] [facility] [address] [place] [address] Social History Tobacco Use Types Packs/Day Years Used Date Smoking Tobacco: Never Assessed Sex and Gender Information Value Date Recorded Sex Assigned at Not on file 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 Right Arm Sitting PULSE: 91. Right Radial, Regular WEIGHT: 195lbs. ALLERGIES: No known drug allergies. TOBACCO USE: Patient does not currently use tobacco. CHIEF COMPLAINT Patient here for follow up. Patient complains of back pain./narciso/est HISTORY: Patient is here for evaluation of low back pain. He has had low back pain chronically since he was a teenager. He reports acute episodes of back pain 1-2 times per year. Last night he was cleaning out his pool and seemed to aggravate his back. He was in some pain at the time, but the pain and stiffness was much increased when he woke up this AM. The pain today is mostly on both sides of the midline of the lumbar region. It is most pronounced on the right side and sometimes radiates into his right anterior thigh. He often takes Motrin for his pain which does not help much. He also does some occasional back stretching. No fever, weight loss, loss of bowel/ bladder control, or direct t rauma to back. SOCIAL HISTORY: The patient is a , active 32 y/o male who walks regularly. He also runs, buthas just begun to resume his running following an ACL and medial meniscus repair 8 months ago. He also plays tennis. 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 PHYSICAL EXAMINATION: CONSTITUTIONAL: GENERAL APPEARANCE: Healthy appearing patient in no distress. GASTROINTESTINAL: ABDOMEN: Soft, non-tender, without masses. Bowel sounds active. LIVER/SPLEEN/KIDNEY: No hepatosplenomegaly, tenderness or nodularity. Kidneys not palpable. MUSCULOSKELETAL EXAM: SPINE/RIBS/PELVIS: Normal stability, RIGHT LOWER PARASPINAL MUSCLE TENDERNESS. EXTREMITIES: BILATERAL LOWER: Normal strength and tone in hamstrings, normal strength and tone in quadriceps, normal strength and tone in the gastrocnemius. NEUROLOGIC: Straight leg raising test negative left leg, straight leg raising test negative right leg. Some discomfort in back due to SLR. OFFICE PROCEDURES: INJECTIONS & IMMUNIZATIONS: . TORADOL, 60, MILLIGRAMS, INTRAMUSCULAR INJECTION, Left Buttocks, given by [facility] on 01/26/2007; no consent form signed, literature not given; [facility] Per Dr Philippe's order pt was given Toradol 60mgs IM in LUOQ buttocks ...[facility] DIRECTOR OF DIETARY/PLAN: 724.2-LOW BACK PAIN ASSESSMENT: The patient's low back pain has worsened. Muscle spasms. MEDICATIONS: ROBAXIN-750 ORAL TABLET 750 MG, one tablet QID, 30 Dispensed, status: NEW PRESCRIPTION, 01/26/2007. LAB ORDERS: Order number: [id number] Test Ordered: INJ-ADMIN SUB'Q OR INTRAMUSCULAR [id number] Order number: [id number] Test Ordered: INJ-TORADOL [id number] 60mg PATIENT EDUCATION: The patient was allowed to ask questions to stated satisfaction. Use Motrin 600mg OTC. Use moist heat. Low back stretching exercises given. RETURN VISIT: Patient instructed to return in a few weeks. Electronically Signed by: Joana Esparza RN on January Electronically Signed by: Monica Philippe MD on January documented in this encounter Plan of Treatment Not on file documented as of this encounter Visit Diagnoses Not on filedocumented in this encounter Care Teams Programmer Numerical Control Relationship Specialty Start Date End Date Micaela Alvarez APN PCP - General NURSE PRACTITIONER 01/01/21 documented as of this encounter
[2025-02-16 12:36] VITALS: BP 172/101; PULSE 97; RESP 18; TEMP 36.7; O2SAT 98
--- OUTSIDE RECORDS SUMMARY | 2025-02-16 13:03 | XMS_ITS | Encounter Summary ---
Author Organization [facility] Address 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
--- OUTSIDE RECORDS SUMMARY | 2025-02-16 13:03 | XMS_ITS | Encounter Summary ---
Author Organization [facility] Address [address] [place] [address] Phone Care Team Providers Care Bearing Grinder Name Role Phone Juan C Suarez MD Primary Care Provider Unknown, Notinfile Primary Care Provider Unavail able Clinic, Primary Care Medicine MD Primary Care Pr ovider Unavailable Encounter Details Date Type Department Care Team (Late st Contact Info) Description 12/04/2020 Telephone [facility] Cardiology [address] [facility] Advanced Medicine 8th [place] [address] [place] [address] Chelle Regalado MD [address] [place] [address] Social History Tobacco Use Types Packs/Day Years [...] on file 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
--- OUTSIDE RECORDS SUMMARY | 2025-02-16 13:03 | XMS_ITS | Clinical Summary ---
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
--- OUTSIDE RECORDS SUMMARY | 2025-02-16 13:03 | XMS_ITS | Encounter Summary ---
Author Organization [facility] Address [address] [place] [address] Care Team Providers Care Hotel Security Officer Name Role Phone Micaela Alvarez APN Primary Care Provider + Encounter Details Date Type Department Care Team (Latest Contact Info) Description 03/31/2006 Outpatient Historical [facility] Jordan Lugo MD [address] [address] Sprain and Strain of Cruciate Ligament of Knee (Primary Dx) Social History Tobacco Use Types Packs/Day Years Used Date Smoking Tobacco: Never Assessed Sex and Gender Information Value Date Recorded Sex Assigned at Not on file Legal Sex Male 2:58 AM SYSTEMS ENG Gender Identity Not on file Sexual Orientation Not on file documented as of this encounter Plan of Treatment Not on file documented as of this encounter Visit Diagnoses Diagnosis Sprain of cruciate ligament of knee- Primary documented in this encounter Care Teams Hotel Security Officer Relationship Specialty Start Date End Date Micaela Alvarez APN PCP - General NURSE PRACTITIONER 01/01/21 documented as of this encounter
--- OUTSIDE RECORDS SUMMARY | 2025-02-16 13:03 | XMS_ITS | Encounter Summary ---
Author Organization [facility] Address [address] [place] [address] Care Team Providers Care Practice Support Specialist Name Role Phone Micaela Alvarez APN Primary Care Provider + Encounter Details Date Type Department Care Team (Late st Contact Info) Description 01/26/2007 Outpatient Historical [facility] Family Medicine Kalyn Eladio [address] [facility] [address] [place] [address] [place] [address] [facility] [address] [place] [address] Social History Tobacco Use Types Packs/Day Years Used Date Smoking Tobacco: Never Assessed Sex and Gender Information Value Date Recorded Sex Assigned at Not on file 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
--- OUTSIDE RECORDS SUMMARY | 2025-02-16 13:03 | XMS_ITS | Encounter Summary ---
Author Organization [facility] Address [address] [place] [address] Phone Care Team Providers Care Interventional Neuroradiologist Name Role Phone No, Physician Primary Care Provider [phone] Juan C Suarez MD Primary Care Provider No, Physician Primary Care Provider [phone] Unknown, Notinfile Primary Care Provider Unavail able Juan C Suarez MD Primary Care Provider Unknown, Notinfile Primary Care Provider Unavail able [facility], Primary Care Medicine Primary Care Pr [...] file Legal Sex Male 4:34 AM CLINICAL PROJECT ASSISTANT Gender Identity Not on file Sexual [...] on filedocumented in this encounter Care Teams Interventional Neuroradiologist Relationship Specialty Start Date End Date No, [...]
--- OUTSIDE RECORDS SUMMARY | 2025-02-16 13:03 | XMS_ITS | Encounter Summary ---
Author Organization [facility] Address [address] [place] [address] Care Team Providers Care Physical Plant Manager Name Role Phone Micaela Alvarez APN Primary Care Provider + Encounter Details Date Type Department Care Team (Late st Contact Info) Description 01/26/2007 Orders Only [facility] Family Medicine 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 Muscle spasms. MEDICATIONS: ROBAXIN-750 ORAL TABLET 750 MG, one tablet QID, 30 Dispensed, status: NEW PRESCRIPTION, 01/26/2007. LAB ORDERS: Order number: [id number] Test Ordered: INJ-ADMIN SUB'Q OR INTRAMUSCULAR [id number] Order number: [id number] Test Ordered: INJ-TORADOL [id number] 60mg PATIENT EDUCATION: [...] on filedocumented in this encounter Care Teams Physical Plant Manager Relationship Specialty Start Date End Date Micaela Alvarez APN PCP - General NURSE PRACTITIONER 01/01/21 documented as of this encounter
--- OUTSIDE RECORDS SUMMARY | 2025-02-16 13:03 | XMS_ITS | Encounter Summary ---
Author Organization [facility] Address [address] [place] [address] Care Team Providers Care Rotary Cutter Feeder Name Role Phone Micaela Alvarez APN Primary Care Provider + Encounter Details Date Type Department Care Team (Late st Contact Info) Description 01/26/2007 Outpatient Historical [facility] Family Medicine Kalyn Eladio [address] [facility] [address] [place] [address] [place] [address] [facility] [address] [place] [address] Social History Tobacco Use Types Packs/Day Years Used Date Smoking Tobacco: Never Assessed Sex and Gender Information Value Date Recorded Sex Assigned at Not on file 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
--- OUTSIDE RECORDS SUMMARY | 2025-02-16 13:03 | XMS_ITS | Encounter Summary ---
Author Organization [facility] Address [address] 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 Went to [facility] and pain film in ER was negative [...] years ago. Chewed until 2000. 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 ALCOHOL: The patient drinks alcohol 1 to [...] has lost weight. LAB ORDERS: Order number: [id number] Test Ordered: LIPID PANEL 7600 530.81-GASTROESOPHAGEAL REFLUX [...] NEW PRESCRIPTION, 02/23/2006. LAB ORDERS: Order number: [id number] Test Ordered: MRI KNEE RETURN VISIT: Instructed [...] on filedocumented in this encounter Care Teams Carton Catcher Relationship Specialty Start Date End Date Micaela Alvarez APN PCP - General NURSE PRACTITIONER 01/01/21 documented as of this encounter
--- OUTSIDE RECORDS SUMMARY | 2025-02-16 13:03 | XMS_ITS | Encounter Summary ---
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 PCP: Giovanny. ALTERNATIVE PHONE NUMBER: [phone] WHO CALLED: Patient called. PHARMACY NUMBER: [phone] SECTION 1: REQUESTED ACTION [email or web address] 12/08/06 at [...] on filedocumented in this encounter Care Teams Coal Hauler Operator Relationship Specialty Start Date End Date Micaela Alvarez APN PCP - General NURSE PRACTITIONER 01/01/21 documented as of this encounter
--- NOTE | 2025-02-16 13:28 | ED.GENADULT ---
HPI - General Adult General Chief complaint: Wound/Laceration Stated complaint: spider bite? Time Seen by Provider: 02/16/25 12:56 History of Present Illness HPI narrative: Patient is a 50-year-old male who presents ER with a spider bite to his right index finger. He was moving a couch cushion outside when a spider bit him on the finger. He has a picture of the spider which does have a fiddle on the torso. He does have 2 pinpoint wounds to the tip of the finger consistent with spider bite. No numbness or tingling. Occurred just prior to arrival. Tetanus up-to-date. Related Data Home Medications ?Medication ?Instructions ?Recorded ?Confirmed ?Last Taken ?Type pravastatin 40 mg tablet 40 mg PO DAILY 03/12/20 03/12/20 03/11/20 History Allergies Allergy/AdvReac Type Severity Reaction Status Date / Time No Known Drug Allergies Allergy Unknown Verified 02/16/25 12:38 Review of Systems Constitutional: Constitutional: Reports no additional constitutional complaints Integumentary/Breasts: Skin/Breast: Reports system reviewed and no additional complaints, except as docu [facility] Past Medical History Medical History (Updated 02/17/25 @ 00:01 by Hanh Llanos) HLD (hyperlipidemia) NSTEMI (non-ST elevated myocardial infarction) HTN (hypertension) Surgical History Surgical History (Updated 02/16/25 @ 13:33 by Carlos Alberto Tolentino MD) History of orthopedic surgery Right biceps tendon repair Family History Family History (Updated 03/12/20 @ 05:41 by Adriana Schmidt RN) Mother Family history of heart disease in male family member before age 55 Hypertension Myocardial infarct Sibling Hypertension Obese Father Lung cancer COPD (chronic obstructive pulmonary disease) Non-tuberculous mycobacterial pneumonia Other Diabetes mellitus Family history of lymphoma Social History Social History (Updated 07/21/19 @ 13:21 by Daphne Coats PA-C) Smoking packs per day: 1 Smoking cigarettes per day: 20.0 Smoking status: Current every day smoker Tobacco type: cigarettes Second hand tobacco smoke exposure: Yes Alcohol intake: current Drinks per week: 18 Alcohol use details: drinks about 18 beers per week Substance use: never Substance use type: does not use Living arrangements: with family Occupation/Education: occupation Gender identity (if verbalized by the patient): Male Spiritual care concerns: No Exam Narrative: GENERAL: Well-appearing, well-nourished, and in no acute distress. HEAD: Normocephalic, atraumatic. EXTREMITIES: Normal range of motion. No edema. SKIN: Warm, dry, no rash. Two punctate bite webb to the dorsum of the 2nd right finger. No redness or swelling. NEURO: Alert and oriented x3. PSYCH: Normal mood and affect. Course Course Emergency Course: Conservative treatment with oral antibiotics in case patient developed secondary infection. Discussed there is no treatment for the brown recluse bite itself as it is a venom issue and not a bacteria issue. Vital Signs Vital signs: Vital Signs Temperature 98.0 F 02/16/25 12:36 Pulse Rate 97 02/16/25 12:36 Respiratory Rate 18 02/16/25 12:36 Blood Pressure 172/101 H 02/16/25 12:36 Pulse Oximetry 98 02/16/25 12:36 Temperature 98.0 F 02/16/25 12:36 Pulse Rate 85 02/16/25 13:36 Respiratory Rate 18 02/16/25 13:36 Blood Pressure 148/92 H 02/16/25 13:36 Pulse Oximetry 95 02/16/25 13:36 Medical Decision Making Vital Signs Vital Signs: Vital Signs Temperature 98.0 F 02/16/25 12:36 Pulse Rate 97 02/16/25 12:36 Respiratory Rate 18 02/16/25 12:36 Blood Pressure 172/101 H 02/16/25 12:36 Pulse Oximetry 98 02/16/25 12:36 Temperature 98.0 F 02/16/25 12:36 Pulse Rate 85 02/16/25 13:36 Respiratory Rate 18 02/16/25 13:36 Blood Pressure 148/92 H 02/16/25 13:36 Pulse Oximetry 95 02/16/25 13:36 Discharge Plan Discharge Clinical Impression: Brown recluse spider bite Patient Disposition: Home Condition: Stable Instructions: Brown Recluse Spider Bite (ED) Additional Instructions: Return to the ER if your fingers using pus, you have finger over 100.4? F, or you have redness streaking up the arm. Take doxycycline to prevent a secondary infection to the bite. Patient Language: Yoruba Prescriptions: New doxycycline hyclate 100 mg capsule 100 mg PO Q12H Qty: 14 0RF No Action metoprolol tartrate 25 mg Tablet 25 mg PO DAILY 30 Days Qty: 30 0RF fenofibrate nanocrystallized [Tricor] 145 mg Tablet 145 mg PO DAILY Qty: 30 0RF pravastatin 40 mg Tablet 40 mg PO DAILY Follow-up/Referrals: PHYSICIAN NOT ON STAFF,NONSTAFF [Primary Care Provider]
[2025-02-16 13:36] VITALS: BP 148/92; PULSE 85; RESP 18; O2SAT 95
== END 2025-02-16 13:38 | disposition home or self-care (01) ==
PROVIDERS: Emergency Provider Emergency Medicine
DX: T63.331A Toxic effect of venom of brown recluse spider, accidental (unintentional), initial encounter (principal); I25.2 Old myocardial infarction; I10 Essential (primary) hypertension; E78.5 Hyperlipidemia, unspecified; F17.210 Nicotine dependence, cigarettes, uncomplicated; Z79.899 Other long term (current) drug therapy
CPT/HCPCS: 99283